=== PATIENT | male | born 1965 | race Caucasian/White ===

== ENCOUNTER 2021-03-21 16:31 | Emergency (ER) | payer BC ==
[2021-03-21 16:59] VITALS: BP 160/100; PULSE 62; TEMP 99.5; BMI 25.7
[2021-03-21] MEDS ORDERED: KETOROLAC TROMETHAMINE 30 MG/1 ML VIAL ONE (17:01)
[2021-03-21] MEDS ORDERED: KETOROLAC TROMETHAMINE 30 MG/1 ML VIAL IVPUSH ONE (17:01)
[2021-03-21] MEDS ORDERED: morphine CARPU-JECT 4 MG/1 ML DISP.SYRIN IVPUSH ONE ×2 (17:19→17:48)
[2021-03-21] MEDS ORDERED: morphine SULFATE 4 MG/ML VIAL ONE ×2 (17:19→17:50)
[2021-03-21 17:42] LABS: BASO % 4.3 % (0-2.0); EOS % 2.2 % (0-4.5); HEMOGLOBIN 16.8 GM/dl (11.7-16.9); LYMPH % 13.3 % (8-40); MCH 32.1 pg (25.7-33.7); MEAN CELL VOLUME 91.6 fl (80-96); MEAN PLT VOLUME 9.1 fl (7.5-11.1); MONO % 10.8 % (3.8-10.2); NEUT % 69.4 % (42.8-82.8); PLATELET COUNT 258 10^3/uL (134-434); RBC 5.24 M/mm3 (4.00-5.60); RDW 11.6 % (11.9-15.9); WHITE BLOOD COUNT 8.7 K/mm3 (4.0-10.8)
[2021-03-21 17:46] LABS: ALBUMIN 4.7 g/dl (3.4-5.0); BILIRUBIN,TOTAL 2.1 mg/dl (0.2-1); CALCIUM 9.5 mg/dl (8.5-10); CREATININE 1.4 mg/dl (0.55-1.3); TOT PROT 7.2 g/dl (6.4-8.2)
[2021-03-21] MEDS ORDERED: SODIUM CHLORIDE 0.9% 500 ML INFUS.BAG IV ONE (17:52)
[2021-03-21 18:16] LABS: EPITHELIAL CELLS RARE /hpf
== END 2021-03-21 20:27 | disposition home or self-care (01) ==
LOC: FER 16:31
PROC: 3E0333Z Introduction of Anti-inflammatory into Peripheral Vein, Percutaneous Approach (ICD-10-PCS; principal; 2021-03-21)
PROC: 3E033GC Introduction of Other Therapeutic Substance into Peripheral Vein, Percutaneous Approach (ICD-10-PCS; 2021-03-21)
DX: N23 Unspecified renal colic (principal)
CPT/HCPCS: 36415; 74150-TC; 80053; 81003; 81015; 85025; 99285-25

== ENCOUNTER 2021-10-19 18:27 | Emergency (ER) | payer BC ==
[2021-10-19 18:47] VITALS: BP 124/78; PULSE 83; TEMP 98.1; BMI 27.1
[2021-10-19] MEDS ORDERED: SULFAMETHOXAZOLE/TRIMETHOPRIM 800MG/160MG D.S. TABLET PO ONE (19:30)
[2021-10-19] MEDS ORDERED: SULFAMETHOXAZOLE/TRIMETHOPRIM 800MG/160MG D.S. TABLET ONE (19:41)
== END 2021-10-19 19:44 | disposition home or self-care (01) ==
LOC: FER 18:27
DX: S40.021A Contusion of right upper arm, initial encounter (principal); V18.0XXA Pedal cycle driver injured in noncollision transport accident in nontraffic accident, initial encounter
CPT/HCPCS: 73000-TC-LT-FY; 73030-TC-LT-FY; 99284-25